=== PATIENT | male | born 1995 | race Caucasian/White ===

== ENCOUNTER 2016-06-23 00:58 | Emergency (ER) | payer OTHER ==
[2016-06-23 01:02] VITALS: BP 158/81
[2016-06-23] MEDS ORDERED: LORazepam TAB(*) 1 MG PO ONE (01:28)
--- NOTE | 2016-06-23 02:37 | ED ---
I, Oh,Leonidas, scribed for Nicola Del Toro MD on 06/23/16 at 0145 . Complex/Multi-Sys Presentation - HPI Summary HPI Summary: This 20 y/o male presents to ED for intermittent palpitation and panic attack since 30 minutes ago. Palpitation and increased anxiety are currently resolved. Pt states he is unsure what may have triggered this episode, although he reports MJ use about an hour ago. Pt does admit that tonight's episode is similar to his panic attack in the past. PMHx includes known anxiety and HTN that is controlled with medications. - History Of Current Complaint Chief Complaint: EDDysrhythmPalp Hx Obtained From: Patient, Medical Records Onset/Duration: Sudden Onset, Resolved Timing: Intermittent, Lasting:, Minutes Severity Currently: None Severity Initially: Mild Associated Signs And Symptoms: Positive: Palpitations - racing - Allergies/Home Medications Allergies/Adverse Reactions: Allergies Allergy/AdvReac Type Severity Reaction Status Date / Time Penicillins [PCN] Allergy Unknown Verified 06/23/16 01:03 Reaction Details PMH/Surg Hx/FS Hx/Imm Hx Cardiovascular History: Reports: Hx Hypertension - JUST DX'D ON MEDS Psychiatric History: Reports: Hx Anxiety Infectious Disease History: No Infectious Disease History: Denies: Traveled Outside the [place] in Last 30 Days - Family History Known Family History: Negative: Cardiac Disease - Social History Alcohol Use: None Hx Substance Use: Yes Substance Use Type: Reports: Marijuana Hx Tobacco Use: No Smoking Status (MU): Never Smoked Tobacco Review of Systems Negative: Fever Positive: Palpitations - racing Positive: Anxious. Negative: Depressed All Other Systems Reviewed And Are Negative: Yes Physical Exam Triage Information Reviewed: Yes Vital Signs On Initial Exam: Initial Vitals Temp Pulse Resp BP Pulse Ox 98.4 F 126 16 158/81 100 06/23/16 00:59 06/23/16 00:59 06/23/16 00:59 06/23/16 00:59 06/23/16 00:59 Vital Signs Reviewed: Yes Appearance: Positive: Well-Appearing, No Pain Distress - anxious Skin: Positive: Warm Head/Face: Positive: Normal Head/Face Inspection Eyes: Positive: CALIN ENT: Positive: Hearing grossly normal Neck: Positive: Supple Respiratory/Lung Sounds: Positive: Clear to Auscultation, Breath Sounds Present Cardiovascular: Positive: Tachycardia. Negative: Murmur Abdomen Description: Positive: Nontender, Soft Bowel Sounds: Positive: Present Musculoskeletal: Positive: Strength/ROM Intact Neurological: Positive: Sensory/Motor Intact, Alert, Oriented to Person Place, Time, Normal Gait Psychiatric: Positive: Anxious - [place] Coma Scale Coma Scale Total: 15 Diagnostics - Vital Signs Vital Signs Temp Pulse Resp BP Pulse Ox 06/23/16 00:59 98.4 F 126 16 158/81 100 - Laboratory Lab Statement: Any lab studies that have been ordered have been reviewed, and results considered in the medical decision making process. Re-Evaluation - Re-Evaluation First Eval Change: Improved Complex Multi-Symp Course/Dx - Diagnoses Provider Diagnoses: Anxiety, Cannabis abuse Discharge - Discharge Plan Condition: Stable Disposition: HOME Patient Education Materials: Anxiety (ED), Cannabis Abuse (ED) Referrals: [facility] Reina [Primary Care Provider] - 2 Days The documentation as recorded by the Marc watson Soohyun accurately reflects the service I personally performed and the decisions made by , Nicola Del Toro MD.
== END 2016-06-23 02:52 | disposition home or self-care (01) ==
LOC: ED 00:58
DX: F41.9 Anxiety disorder, unspecified (principal); F12.10 Cannabis abuse, uncomplicated
CPT/HCPCS: 93005; 99282; A9270-GY

== ENCOUNTER 2016-07-11 16:18 | Emergency (ER) | payer OTHER ==
[2016-07-11] MEDS ORDERED: LORazepam TAB(*) 1 MG PO ONE (18:23)
--- NOTE | 2016-07-11 18:37 | ED ---
Complex/Multi-Sys Presentation - HPI Summary HPI Summary: 20M presents with anxiety and lethargy for 3 days. He states that is all started after he came home from the bar in [facility]. He states he kept having this anxiety attacks where he would feel his heart racing and feel SOB. He denies any chest pain or SOB currently. He denies any abdominal pain, n/v/d. He states that he has been more tired that normal. He has a history of anxiety and was on Prozac by states has not taken in a long time because anxiety had not been an issue. He denies any si/hi thoughts. - History Of Current Complaint Chief Complaint: EDGeneral Time Seen by Provider: 07/11/16 18:13 - Allergies/Home Medications Allergies/Adverse Reactions: Allergies Allergy/AdvReac Type Severity Reaction Status Date / Time Penicillins [PCN] Allergy Unknown Verified 06/23/16 01:03 Reaction Details PMH/Surg Hx/FS Hx/Imm Hx Cardiovascular History: Reports: Hx Hypertension - JUST DX'D ON MEDS Psychiatric History: Reports: Hx Anxiety Infectious Disease History: Reports: Traveled Outside the [place] in Last 30 Days - [facility] - Family History Known Family History: Negative: Cardiac Disease - Social History Alcohol Use: None Hx Substance Use: Yes Substance Use Type: Reports: Marijuana Hx Tobacco Use: No Smoking Status (MU): Never Smoked Tobacco Review of Systems Negative: Fever Negative: Chest Pain Negative: Cough Negative: Abdominal Pain Positive: Anxious All Other Systems Reviewed And Are Negative: Yes Physical Exam Triage Information Reviewed: Yes Vital Signs On Initial Exam: Initial Vitals Temp Pulse Resp BP Pulse Ox 97.7 F 67 18 165/87 97 07/11/16 16:20 07/11/16 16:20 07/11/16 16:20 07/11/16 16:20 07/11/16 16:20 Vital Signs Reviewed: Yes Appearance: Positive: Well-Appearing Skin: Positive: Warm, Dry Head/Face: Positive: Normal Head/Face Inspection Eyes: Positive: Normal, Conjunctiva Clear ENT: Positive: Normal ENT inspection, Pharynx normal, TMs normal Respiratory/Lung Sounds: Positive: Clear to Auscultation, Breath Sounds Present Cardiovascular: Positive: Normal, RRR Abdomen Description: Positive: Nontender, Soft Bowel Sounds: Positive: Present Diagnostics - Vital Signs Vital Signs Temp Pulse Resp BP Pulse Ox 07/11/16 17:26 97.9 F 80 16 149/77 100 07/11/16 16:20 97.7 F 67 18 165/87 97 - Laboratory Result Diagrams: 07/11/16 18:57 07/11/16 18:57 Lab Statement: Any lab studies that have been ordered have been reviewed, and results considered in the medical decision making process. - EKG No standard instances Cardiac Rate: NL EKG Rhythm: Sinus Rhythm EKG Interpretation: early repolization Complex Multi-Symp Course/Dx Course Of Treatment: 20M presents with anxiety and lethargy for 3 days. he denies any fever or chest pain. He denies any calf pain or swelling. He did travel back from [facility] so that does place him at risk for PE. He denies any family history of PE or DVT. He denies any drug use. will get basic labs. labs normal. d-dimer normal so do not suspect PE. gave dose of ativan to go. told follow up with [facility]. patient understands and agrees with plan - Diagnoses Differential Diagnoses/HQI/PQRI: Sepsis, Urinary Tract Infection, Other - anxiety, PE Provider Diagnoses: Anxiety Discharge - Discharge Plan Condition: Good Disposition: HOME Patient Education Materials: Anxiety (ED) Referrals: [facility] Reina [Primary Care Provider] - Additional Instructions: Follow up with [facility] within 3 days Return to ED if develop any new or worsening symptoms
[2016-07-11 18:41] LABS: Urine Bilirubin Negative (Negative); Urine Glucose Negative (Negative); Urine Nitrite Negative (Negative)
[2016-07-11 19:12] LABS: Hematocrit 49 % (42-52); Hemoglobin 17.2 g/dl (14.0-18.0); Mean Corpuscular HGB Conc 35 g/dl (31-36); Mean Corpuscular Hemoglobin 31 pg (27-31); Mean Corpuscular Volume 87 fL (80-94); Mean Platelet Volume 8 um3 (7.4-10.4); Red Blood Count 5.63 10^6/ul (4.0-5.4); Red Cell Distribution Width 14 % (10.5-15); White Blood Count 9.7 10^3/ul (3.5-10.8)
[2016-07-11 19:36] LABS: TSH (Thyroid Stimulating Horm) 1.79 mcIU/mL (0.34-5.60)
[2016-07-11 21:06] LABS: Albumin 4.9 g/dL (3.2-5.2); BUN/Creatinine Ratio 12.4 (8-20); EGFR African American 125.6 (>60); EGFR Non-African American 97.7 (>60); Globulin 3.3 g/dL (2-4); Potassium 3.9 mmol/L (3.5-5.0); Total Protein 8.2 g/dL (6.4-8.9)
[2016-07-11] MEDS ORDERED: Lisinopril TAB* 10 MG PO ONE (21:15)
[2016-07-11 22:20] VITALS: BP 127/70
== END 2016-07-11 22:20 | disposition home or self-care (01) ==
LOC: ED 16:18
DX: F41.9 Anxiety disorder, unspecified (principal)
CPT/HCPCS: 36415; 80053; 81003; 84443; 85025; 85379; 93005; 99283; A9270-GY

== ENCOUNTER 2016-08-22 20:55 | Emergency (ER) | payer OTHER ==
[2016-08-22 21:02] VITALS: BP 148/82
--- NOTE | 2016-08-22 21:56 | RAD ---
HISTORY: Fall, memory loss COMPARISONS: June 20, 2013 TECHNIQUE: Multiple contiguous axial CT scans were obtained of the head without intravenous contrast. FINDINGS: HEMORRHAGE/INFARCT: There is no hemorrhage or acute infarct. MASSES/SHIFT: There is no mass or shift. EXTRA-AXIAL SPACES: There are no extra-axial fluid collections. SULCI AND VENTRICLES: The sulci and ventricles are normal in size and position for the patient's stated age. CEREBRUM: There are no focal parenchymal abnormalities. BRAINSTEM: There are no focal parenchymal abnormalities. CEREBELLUM: There are no focal parenchymal abnormalities. VESSELS: The vessels are grossly normal. PARANASAL SINUSES: The paranasal sinuses are clear. ORBITS: The orbits are unremarkable. BONES AND SOFT TISSUE: No bone or soft tissue abnormalities are noted. OTHER: None IMPRESSION: NO ACUTE INTRACRANIAL PATHOLOGY.
--- NOTE | 2016-08-23 06:46 | ED ---
Gilbert De Los Santos Anna, scribed for Eduar Vela MD on 08/22/16 at 2121 . Head Injury - HPI Summary HPI Summary: Patient is a 20 y/o male coming to [facility] presenting after the sudden onset of a fall that began this afternoon. He tripped and fell from a standing height while intoxicated today. He hit the back of his head. He has a current AWAD and describes the severity of his pain as 4/10. He was ambulatory at the scene. After he arrived home later, he was confused. His girlfriend reports that he didnt feel well and thought he maybe had a concussion. He displayed some memory loss. He denies current photophobia, nausea, dizziness, lightheadedness, and loss of balance. Patient medications were reviewed this visit. - History Of Current Complaint Chief Complaint: EDHeadInjury Stated Complaint: FALL/HEAD INJURY Time Seen by Provider: 08/22/16 21:00 Hx Obtained From: Patient, Family/[employer] - accompanied by girlfriend Mechanism Of Injury: Fall From A Standing Position Onset/Duration: Started Hours Ago, Resolved Severity Currently: Moderate Severity Initially: Moderate Pain Intensity: 4 Pain Scale Used: 0-10 Numeric - Allergies/Home Medications Allergies/Adverse Reactions: Allergies Allergy/AdvReac Type Severity Reaction Status Date / Time Penicillins [PCN] Allergy Unknown Verified 08/22/16 21:17 Reaction Details PMH/Surg Hx/FS Hx/Imm Hx Cardiovascular History: Reports: Hx Hypertension - JUST DX'D ON MEDS Psychiatric History: Reports: Hx Anxiety - Immunization History Date of Tetanus Vaccine: utd Date of Influenza Vaccine: none Infectious Disease History: No Infectious Disease History: Denies: Traveled Outside the [place] in Last 30 Days - Family History Known Family History: Negative: Cardiac Disease - Social History Occupation: Student - [employer] Alcohol Use: Weekly Hx Substance Use: Yes Substance Use Type: Reports: Marijuana Hx Tobacco Use: No Smoking Status (MU): Never Smoked Tobacco Review of Systems Negative: Fever, Chills Negative: Erythema Negative: Sore Throat Negative: Chest Pain Negative: Shortness Of Breath, Cough Negative: Abdominal Pain, Vomiting, Nausea Negative: dysuria, hematuria Negative: Myalgia, Edema Negative: Rash Neurological: Other - Denies dizziness, lightheadedness Positive: Headache All Other Systems Reviewed And Are Negative: Yes Physical Exam - Summary Physical Exam Summary: Constitutional: Well-developed, Well-nourished, Alert. (-) Distressed Skin: Warm, Dry HENT: Eyes: Conjunctiva normal Neck: Musculoskeletal ROM normal neck. (-) JVD, (-) Stridor, (-) Tracheal deviation Cardio: Rhythm regular, rate normal, Heart sounds normal; Intact distal pulses; The pedal pulses are 2+ and symmetric. Radial pulses are 2+ and symmetric. (-) Murmur Pulmonary/Chest wall: Effort normal. (-) Respiratory distress, (-) Wheezes, (-) Rales Abd: Soft. (-) Tenderness, ~(-) Distension, (-) Guarding, (-) Rebound Musculoskeletal: (-) Edema Lymph: (-) Cervical adenopathy Neuro: Alert, Oriented x3, Strength normal, Cranial nerves II-XII are grossly intact. (-) Dysmetria, (-) Nystagmus, (-) Ataxia by finger to nose testing, (-) Sensory deficit. Psych: Mood and affect Normal Triage Information Reviewed: Yes Vital Signs On Initial Exam: Initial Vitals Temp Pulse Resp BP Pulse Ox 98.9 F 90 18 148/82 99 08/22/16 20:59 08/22/16 20:59 08/22/16 20:59 08/22/16 20:59 08/22/16 20:59 Vital Signs Reviewed: Yes - [place] Coma Scale Coma Scale Total: 15 Diagnostics - Vital Signs Vital Signs Temp Pulse Resp BP Pulse Ox 08/22/16 21:07 100.2 F 85 15 148/82 99 08/22/16 20:59 98.9 F 90 18 148/82 99 - Laboratory Lab Statement: Any lab studies that have been ordered have been reviewed, and results considered in the medical decision making process. - CT Brain CT WO CT Interpretation: No Acute Changes CT Interpretation Completed By: Radiologist - IMPRESSION: NO ACUTE INTRACRANIAL PATHOLOGY. Head Injury Course/Dx Assessment/Plan: Patient is a 20 y/o male coming to [facility] presenting after the sudden onset of a fall that began this afternoon. Brain CT reveals no acute intracranial injury. Patient will be discharged home and excused from academic duties until cleared by [facility]. - Diagnoses Provider Diagnoses: Concussion Discharge - Discharge Plan Condition: Stable Disposition: HOME Patient Education Materials: Concussion (ED) Forms: *School Release Referrals: [facility] [Primary Care Provider] - Additional Instructions: Excused from academic duties until cleared by [facility]. RETURN TO THE EMERGENCY DEPARTMENT FOR CHANGING OR WORSENING SYMPTOMS The documentation as recorded by the Gilbert watson Anna accurately reflects the service I personally performed and the decisions made by Dane costa Jerry, MD.
== END 2016-08-22 22:53 | disposition home or self-care (01) ==
LOC: ED 20:55
DX: S06.0X9A Concussion with loss of consciousness of unspecified duration, initial encounter (principal); W18.09XA Striking against other object with subsequent fall, initial encounter; Y92.9 Unspecified place or not applicable; F10.129 Alcohol abuse with intoxication, unspecified; Z88.0 Allergy status to penicillin
CPT/HCPCS: 70450; 99282